=== PATIENT | male | born 1990 | race Two or more races ===

== ENCOUNTER 2024-01-12 13:07 | Emergency (ER) | payer OTHER ==
[~2024-01-12] VITALS: Ht 170.2 cm; Wt 89.6 kg
[~2024-01-12 13:07] MED LIST: DIPH25CA66 PO; FAMO20TA10 PO; PRED20TA2 PO
[2024-01-12 14:45] VITALS: BP 145/95; PULSE 85; RESP 16; TEMP 98.7; O2SAT 96
[2024-01-12] MEDS ORDERED: HYDR50TA69 PO (14:51)
[2024-01-12] MEDS ORDERED: PRED20TA2 PO (14:51)
[2024-01-12] MEDS: EPINEPHrine HCL 1 MG/1 ML AMP SC ONE (14:56)
[2024-01-12] MEDS: methylPREDNISolone SOD SUCC 125 MG/2 ML VL IM ONE (14:56)
== END 2024-01-12 15:09 | disposition home or self-care (01) ==
LOC: ER 13:08
DX: T78.40XA Allergy, unspecified, initial encounter (principal); X58.XXXA Exposure to other specified factors, initial encounter
CPT/HCPCS: 96372; 99284; J0171; J2919